=== PATIENT | male | born 2000 | race Caucasian/White ===

== ENCOUNTER 2022-07-15 08:00 | Outpatient (RCR) | payer BC, SELFPAY ==
--- NOTE | 2022-07-15 09:00 | BH.SGPN.GN ---
Behaviors/Verbalizations/Mental Status: []Eye contact is good. Motor activity is appropriate. Appearance is casual. Speech is Appropriate. Mood is anxious. Affect is congruent. Thoughts are linear and logical. No evidence of psychosis. Reviewed daily check in sheet and no reports of suicidal ideations or intent. Client Response/Progress/Benefit: []Pt responded well to session AEB listening attentively to others and sharing thoughts and feelings. Pt identified mental health positive as making it to IOP this morning and being up before his dad told him it was time to get up. Pt stated additional positive as being able to get through Thanksgiving dinner with limited isolation. Pt reported current stressor as his family because of feeling pressure from certain family members. Pt identified would like to focus on learning ways to manage his depression. Pt stated he also is struggling with some synagogue stuff, but will be meeting with an outpatient Sikhism counselor that might be able to help with that. Pt seemed to benefit from support from peers. First day in IOP. Pt to increase healthy coping skills, improve daily functioning, and prevent decompensation. Narrative Note: []
--- NOTE | 2022-07-15 10:12 | BH.SGPN.GN ---
Behaviors/Verbalizations/Mental Status: []Eye contact is good. Motor activity is appropriate. Appearance is casual. Speech is Appropriate. Mood is anxious and dysthymic. Affect is congruent. Thoughts are linear and logical. No evidence of psychosis. Client Response/Progress/Benefit: []Pt new to iop tx, did well to remain an engaged participant in group discussions. Attentive during psychoeducation on SMART goals (Specific, Measurable, Achievable, Realistic, and Time-bound) and engaged in group experiential activity. Participated in an interactive discussion with peers in which they worked together to define what a goal is and the benefits of having goals. Group identified benefits as; provides motivation, increased confidence, needed for growth, gives a sense of accomplishment, and help promote healthy change behaviors. Participated in interactive discussion in which group identified barriers to setting goals and following through with goals. Barriers identified included; lack of motivation, procrastination, criticism from self/others, unrealistic expectations, outside stressors, and not knowing where to start. Noted connecting with barrier of unrealistic expectations of self. Benefited from increased awareness of benefits and strategies for goal-setting. Will continue in IOP to prevent decompensation, improve mood stability, and improve ability to function at baseline. Narrative Note: []
--- NOTE | 2022-07-15 11:12 | BH.SGPN.GN ---
Behaviors/Verbalizations/Mental Status: []Eye contact is good. Alert and oriented. Motor activity is appropriate. Appearance is casual. grooming is appropriate. Speech is Appropriate. Mood is anxious and dysthymic. Affect is congruent. Thoughts are linear and logical. No evidence of psychosis or hallucinations. Client Response/Progress/Benefit: []Client was engaged during discussion and willing to complete the worksheet challenging them to develop a personal SMART goal. Client chose the goal of meditating 5-10 minutes each day for a week. Client stated this will benefit him by clearing his mind, improving focus, increasing mindfulness. Client identified barriers which included: forgetting and lack of motivation. Client receptive to identifying solutions for these barriers and willing to begin working on this goal. Benefited from this group by developing a short-term SMART goal related to mental health. Will continue IOP tx to improve mental health sx management, increased healthy coping, and prevent decompensation. Narrative Note: []
--- NOTE | 2022-07-17 09:00 | BH.SGPN.GN ---
Behaviors/Verbalizations/Mental Status: []Eye contact good, casually dressed, motor activity appropriate, speech normal rate and tone, mood anxious, congruent affect, thoughts linear and intact, no evidence of delusions or hallucinations. Reviewed pt's symptom tracker, denies suicidal ideation, plan, or intent as of this date 07/17/22. Client Response/Progress/Benefit: []Pt responded well to session, attentive and providing supportive feedback throughout. Pt reports feeling ?invigorated this morning. Identified current mental health wins as following through with 2 days in a row of meditating for at least 10 minutes, additionally notes spending time with his brother as a positive. Shared this was calming and encouraged him to continue with this goal. Shared current stressor is driving here as he struggles with anxiety and the weather was bad this morning. Did well to identify use of positive self-talk in order to support himself in getting here. Appearing to benefit from supportive feedback and reflecting on mental health wins. Pt to continue IOP tx to further improve healthy coping repertoire, improve mood stability, and prevent decompensation. Narrative Note: []
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
[2022-07-17 11:23] VITALS: BP 151/88; PULSE 73
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
--- NOTE | 2022-07-17 12:51 | BH.DR.ITP ---
Initial Treatment Plan Patient Information Visit Information: ADMISSION DATE: EXPECTED LOS: 4-6 weeks Problems/Symptoms Problem #1:: Mood instability Symptom:: Sadness, hopelessness, guilt, anhedonia, passive thoughts of , passive suicidal ideation Problem #2:: Anxiety Symptom:: Worry, rumination, intermittent intrusive thoughts
--- NOTE | 2022-07-17 15:42 | BH.MDN_ITS ---
Multi-Disciplinary Note - Note 30-min Individual Time Started:: 11:35 Date: 07/17/22 Purpose of session/treatment goals addressed:: To gather information on pt's current stressors, symptoms, triggers, and tx goals. Another goal was to build rapport and provide emotional support. Eye Contact:: Good Motor Activity:: Appropriate Appearance:: Neat Speech:: Appropriate Mood:: Anxious Affect:: Congruent Thoughts:: Linear, Logical, No evidence of hallucinations/delusions noted Staff Interventions:: psychoeducation on:, rapport building, strengths perspective, treatment planning, goal setting Client Response:: Pt responded well to session, open to meeting with therapist. Pt shared he is enjoying the group so far and likes connecting with peers. Pt has been in group therapy before and he felt the group atmosphere benefitting h im and taught him skills. Pt is connected with outpatient psychiatry and counseling. Pt sees a provider via telehealth for medication management and pt is going to see a [facility] based counselor soon. Pt shared he is spiritual at baseline, but he can tell he is depressed when I lose Jere and can tell when he is manic when I'm saved. Pt reported he wants to learn how to better cope with his depression and jim. Pt feels very negatively towards himself and reports unfairly comparing himself to his father. Pt is close with his siblings and mother. Per pt's chart, pt has intrusive thoughts, but pt did not disclose the nature of these thoughts to therapist. Pt did connect with general examples of intrusive thoughts such as thoughts of hurting others or thoughts about yuki. Pt could potentially benefit from learning more about intrusive thinking in future sessions. Risks/Concerns:: Denies active suicidal ideations, plan, or intent as of 07/17/22. Pt admits to having recent thoughts of and passive, fleeting SI, but none currently. Pt also reports having intrusive HI about once a week, but denies any plan or intent. Progress Toward Goals/Plan:: Pt's second day of IOP tx and reports enjoying the program so far. Pt presents with a depressed mood, intrusive thoughts, hopelessness, anhedonia, negative thoughts of self, and some OCD tendencies. Pt was diagnosed with bipolar disorder within in the last year and he reports history of jim with orthodox preoccupations. Pt reports at his baseline he is very spiritual, but it intensifies when manic. Pt will continue IOP tx to prevent decompensation and gain healthy coping skills. Time Stopped:: 11:55
--- NOTE | 2022-07-17 15:43 | BH.PSA_ITS ---
Source of Information - Presenting Problems/Circumstances Problems, Referral Source, Mental Status, Client: Pt is a 21 year-old male with a history of bipolar I disorder. Pt was referred to [facility] tx following a psychiatric admission at [facility] for suicidal ideations with a plan. Pt presents to [facility] in a depressed episode, but he had recent manic episodes which included racing thoughts, disorganized thoughts, excessive energy, delusions, and congregational preoccupation. Pt currently endorses a depressed mood, anhedonia, isolative behaviors, lack of motivation, and survival ambivalence. Pt also endorses intrusive HI but denies any intent to act on these thoughts and they are disturbing to pt. Pt admits to excessive drinking prior to his psychiatric admission. Pt's symptoms are impacting his overall functioning. Psychiatric Presentation - Psych Issues & Need for Admission Psychiatric Issues:: Bipolar 1 disorder, most recent episode depression, severe with psychotic features (F31.5; resolving); Anxiety disorder NOS; Cluster B traits; OCD tendencies Past Psychiatric History - MH Treatment Hx Treatment History: two psychiatric admissions per pt report. The first was in April, for jim and the second admission was as described above for depression. Pt was first manic he thinks in 2019 when he became very manic while at a [employer] camp and he felt that I am saved he remembers just feeling really good about himself and not sleeping at all. Pt has not had any suicide attempts ever. Pt did the partial hospitalization program at [facility] in high school in 2017. He has had counseling off-and-on since age 14. 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 He feels these preoccupations increased in recent years. He has a psychiatrist he sees weekly and he has been seeing him since April 2021. He had a counselor only for a few weeks and now he meets with a new counselor at [facility] which is a [employer]ist counselor. He first self harmed at age 15 and it involved bruising and burning himself as described in pt's psychiatric evaluation. First hospitalization:: 2020 Most recent hospitalization:: 2021 Medication Trials:: Yes ECT Therapy:: No Age of first mental health symptoms: See tx history Describe (age, circumstance, etc) any past hospitalizations: see tx history Current providers for mental health treatment (counselor, psychiatrist, case planner, etc.): Pt sees a therapist, Melvin, at [facility]. Pt also sees a psychiatrist at [facility]. Development & Family of Origin - Childhood Significant Childhood Events: Pt denied any significant childhood events. Pt shared he never felt like a good kid, though, so pt hid things from his parents. - Family Who currently lives in your home?: Pt lives with his parents and pt reports feeling like a mooch for not living on his own. This is a significant source of stress for pt. Describe family composition:: pt is the middle child and has a brother 14 months older than him and his sister 2 years younger than him. He is closer to his brother but gets along with both. Pt reports he does feel like he does not add up to his brother and father. Pt's parents are and loving. Pt has never been and he is not currently in a relationship. - Family History Family Hx of Psychiatric or AOD Problems: Paternal grandmother had schizophrenia and depression. He has a sister with bipolar disorder. No completed suicides in the family. Maternal grandmother had anxiety. Maternal grandfather was an alcoholic and he has a cousin who is a drug addict. Ethnicity - Culture Do you identify yourself with any particular cultural, ethnic background, or community?: No - Sexuality Sexual Orientation: Heterosexual Spirituality - Anglican Do you currently identify with any organized synagogue?: Judaism - Beliefs Is there a particular form of support from this community you can use for your recovery?: Yes - but this is also a significant stressor for pt. See psych eval. Mental Status - Memory Recent Memory: Fair Remote Memory: Fair - Concentration Concentration: Good - Eye Contact Eye Contact: Fair - Speech Speech: Articulate - Thought Process Thought Process: Obsessions, Ruminations Insight: Poor Judgment: Poor Delusions: Persecutory - He is preoccupied with congregational thoughts and thinks about his congregational ideas almost constantly. Pt feels like he is the devil when depressed and saved when manic. Behavior: Agitated - Orientation Orientation: Time, Person, Place, Situation - Appearance Appearance: Neat/clean - Affect Affect: Alert Suicide Assessment - Suicidal Ideation Have you ever felt like hurting yourself?: Yes Please explain:: history of suicidal ideations, but denies any currently. Pt also has a history of self-harm, but denies any currently. Were you using ETOH/drugs at the time?: No Suicidal Intentional Rating Scale (SIRS): Suicidal thoughts (past) - He has passive thoughts of at times but none for the past few days. He has had fleeting suicidal ideation recently but not in the past few days according to the patient. Physician Notification: If Active suicidal thoughts/Will not contract for safety is checked, contact physician and document in the Physician Notification section below. Violent Behavior/Abuse History - Homicidal Ideation Do you have any homicidal thoughts? If so, explain:: Yes Is there a known potential victim? If yes, who:: Yes Time warned, describe warning:: Pt does have intrusive thoughts around homicidal ideation where he has thoughts that come and go and he finds them ego dystonic or intrusive and he feels like he would never do them. The thoughts are of killing his father and sleeping with his mother. - Abuse Have you ever been abused?: No Please explain:: Pt denies any abuse during childhood or as an adult. - Life Events Are there any other significant life events?: Hardships - Safety Do you ever feel threatened in your home? 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 Substance Use - Substance Substance Use Type: Alcohol, Tobacco, Caffeine - Specific Drugs What specific drugs have you used?: Pt vapes nicotine. Non-smoker. No marijuana use ever. No other drug use except occasional alcohol use. After age 19 pt admits he would sporadically engage in some heavy drinking. He did this only occasionally until just prior to his recent psych admit in May 2022 once a week he was drinking a lots of vodka, several beers and a rum and coke. After discharge June 07 the first day he did drink 5 drinks but since that time he has only had 1 beer in the last week. He does not feel he has a problem with alcohol. No other drug use and no rehab ever. - IV Substance Use Do you have a history of IV use?: denies Leisure/Social Activities - Interests What do you enjoy or might be interested in learning about?: Pt enjoys drumming and his yuki is extremely important to him. Pt does not know what he wants to do for a career and this is very distressing to pt. Education & Occupational Histo - Education What is your level of education?: Some College - Pt has four years of college, but pt changed schools, so pt does not have a degree. Do you have any learning disabilities?: No - Occupation List any current or past employment:: Pt is currently not working. Pt has worked for [employer] in the past. Pt's unemployment is a significant stressor for pt as pt feels he is mooching off his parents. Service - Service Have you ever been in the ?: No Legal History - Records Have you had any past legal charges?: No Do you have any current legal charges?: No Have you ever been incarcerated? If yes, describe:: No - Court Orders Have you had any past court orders for psychiatric treatment?: No Do you have a present court order for psychiatric treatment?: No Problem Checklist - Current Problem Areas Problem List: Depressed mood/sad, Anxiety, Anger/aggression, Inattention, Impulsivity, Psychosis, Mood swings/hyperactivity, Substance use - history of alcohol misuse, denies abuse., Sleep problems, Additional psychosocial stressors - Pt is not working, has not finished school, and reports not knowing what he wants to do which causing pt significant distress. Discharge Planning Needs - Anticipated Follow-Up Mental Health Center (Name/Phone Number):: [facility]; 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 Diagnoses - Diagnoses Diagnosis #1:: Bipolar 1 dx, most recent episode depression, severe w/psychotic features Diagnosis #2:: Anxiety NOS Diagnosis #3:: Cluster B traits Diagnosis #4:: Rule out OCD Interpretive Summary - Interpretive Summary Interpretive Summary: Pt is a 21-year-old single male with a history of bipolar 1 disorder diagnosed 1 year ago who has been depressed since mid April 2022 when he stopped his psychiatric medications. This was followed by psychiatric admission to [facility] from May 28 to June 07, 2022 for depression, suicidal ideation with plan to cut with a razor. Pt has struggled with medication compliance in the past and then when he stops them sometimes it leads to jim and other times to depression. He currently lives with his parents and his 21-year-old sister. His family is supportive of him and he gets along well with them. However, pt has many negative feelings about himself for living at home. He last worked at [employer] for 3 years but he quit his job in early May due to mental health issues. 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 He is preoccupied with congregational thoughts and thinks about his congregational ideas almost constantly. He describes these thoughts as ego syntonic. He states that when he gets the thoughts he reports belief that they pretty much they are true. They are not unpleasant or intrusive in a negative way. He has been reading congregational readings for about 1 hour a day lately. This is more than he usually does. He states I am pretty sure I am going to hell. I am scared because once I , I am going to hell. At the time of his hospitalization 6 weeks ago or so the Pt states that he felt even more obsessed with the fact that he is not a good [employer]ist. At 1 point he actually felt like I am the devil. But he states that this did not last very long. Pt does have intrusive thoughts around homicidal ideation where he has thoughts that come and go and he finds them ego dystonic or intrusive and he feels like he would never do them. These homicidal thoughts are about killing another man and sleeping with his . These thoughts occur about his friends and occasionally about his father. He finds these thoughts unpleasant and does not feel he would ever act on them. He has no history of violence. He denies any rituals whatsoever. Including prior. He has a history of burning and bruising himself and the most recent time was during his hospital admission in May 2022 he punched a few things. He sometimes punches the dashboard of his car when he is frustrated or angry. He has a history of burning himself at [employer] in 2020 to relieve stress and tension. He describes his depression as still present and he is less sad but slightly better than he was when he was admitted to the hospital on May 28. He endorses hopelessness but no worthlessness. He is apathetic and has been isolating. He has low motivation. He is anhedonic and has some increase in appetite possibly due to medication. He is sleeping 8 to 10 hours a night and does not take naps. His energy level is low and his concentration he feels is okay. He admits to feeling guilty and ambiguous about living. He has passive thoughts of at times but none for the past few days. He has had fleeting suicidal ideation recently but not in the past few days according to the Pt. He denies any plan for suicide. He states he would not kill himself now because he feels he will go to [facility] if he does. Homicidal ideation is described above as it is an intrusive thought which is ego dystonic. He denies any hallucinations but states that in the past 1 manic he did have heard some voices at times when manic but not very often and not now. When he gets manic his symptoms involve racing thoughts, increased energy, sleeping sometimes 0 hours and not tired at all the next day, disorganized thinking and congregational preoccupation which increases in nature. Pt is a worrier by nature and rumina beatrice negatively. No panic attacks, eating disorder, trauma or PTSD or head trauma. He says a counselor has told him he had OCD in the past. Family history of alcohol use disorder, bipolar disorder, and schizophrenia. Treatment Plan Recommendations - Recommendations Guidelines: Special needs identified to be included in the development of an individualized treatment plan regarding past psychiatric history and treatment, developmental events, family relationships/events/culture, past and/or current educational, occupational, social, and residential experience, and legal status. Recommendations:: Pt will start IOP as the structure, support, education and group therapy will hopefully prevent worsening of pt's symptoms which might require rehospitalization. He felt safe during the interview and if it anytime he does not feel safe he will let us know or go to the emergency room. The risk, options, possible side effects and complications of the medications were discussed with pt and he understands and accepts these. No medication changes were made today as they were recently changed. Pt reports history of medication compliance.
--- NOTE | 2022-07-17 15:43 | BH.MTP ---
Master Treatment Plan - Patient Information Program Physician:: Dr. Avalos Primary Therapist:: Georgiana PARSONS - Psychiatric Diagnoses Psychiatric Diagnoses:: Bipolar 1 disorder, most recent episode depression, severe with psychotic features (F31.5; resolving); Anxiety disorder NOS; Cluster B traits; OCD tendencies Diagnosis Code(s):: F 31.5 - Estimated LOS Estimated LOS (in weeks):: 6 Problem/Goal #1 - Problem/Goal #1 Stated Goal:: Pt will increase mood stability, reduce intensity of bipolar sx, and improve daily functioning. Description of Barriers: Pt has a history of medication noncompliance which results in jim, pt endorses cheondoism preoccupation that could be from jim but could also be intrusive in nature. Pt has a family history of schizophrenia and alcoholism. Functional Impact: Pt is a 21 year-old male with a history of bipolar I disorder. Pt was referred to [facility] tx following a psychiatric admission at [facility] for suicidal ideations with a plan. Pt presents to [facility] in a depressed episode, but he had recent manic episodes which included racing thoughts, disorganized thoughts, excessive energy, delusions, and cheondoism preoccupation. Pt currently endorses a depressed mood, anhedonia, isolative behaviors, lack of motivation, and survival ambivalence. Pt also endorses intrusive HI but denies any intent to act on these thoughts and they are disturbing to pt. Pt admits to excessive drinking prior to his psychiatric admission. Pt's symptoms are impacting his overall functioning. Goal Relevant Strengths/Supports: Pt is close with his siblings and his mother, pt has outpatient psychiatry at [facility] and counseling through [facility], and pt is motivated. - Objectives Objective #1 Stated Objective: Pt will increase self-awareness of bipolar disorder by identifying 2-3 warning signs and triggers to both manic and depressive episodes Interventions: Through individual and group work, therapist will help pt to identify triggers and warning signs for manic and depressive episodes. Therapist will provide psychoeducation on bipolar disorder and attempt to decrease stigma associated with this dx. Discharge Criteria: Pt will be able to identify 2-3 triggers to jim and depressive episodes. Pt will also report increased awareness Bipolar dx and how it impacts pt's life. Target Date: 08/26/22 Review Date: 08/05/22 Status: open Objective #2 Stated Objective: Pt will learn and utilize 2-3 healthy coping strategies to better manage depressive symptoms and reduce DSM-5 symptoms for depression. Interventions: Through group and individual sessions, therapist will help pt identify triggers and warning signs of depression and emotional dysregulation including emotional, physical, and behavioral changes. Therapist will teach pt various coping skills to manage her symptoms. Therapist will use cognitive restructuring techniques and help pt gain awareness of negative thoughts that reinforce depressive cycles. Therapist will help pt incorporate mindfulness and emotional regulation skills when dealing with difficult situations. Discharge Criteria: Pt will have met this goal when can report learning and using at least 2 coping skills to manage depressive symptoms and her DSM-5 scores for depression have decreased. Target Date: 08/26/22 Review Date: 08/05/22 Status: open Problem/Goal #2 - Problem/Goal #2 Stated Goal:: Pt will reduce anxiety, avoidance, and intrusive thinking while increasing ability to function on daily basis Description of Barriers: Pt has a history of medication noncompliance which results in jim, pt endorses cheondoism preoccupation that could be from jim but could also be intrusive in nature. Pt has a family history of schizophrenia and alcoholism. Functional Impact: Pt is a 21 year-old male with a history of bipolar I disorder. Pt was referred to [facility] tx following a psychiatric admission at [facility] for suicidal ideations with a plan. Pt presents to [facility] in a depressed episode, but he had recent manic episodes which included racing thoughts, disorganized thoughts, excessive energy, delusions, and cheondoism preoccupation. Pt currently endorses a depressed mood, anhedonia, isolative behaviors, lack of motivation, and survival ambivalence. Pt also endorses intrusive HI but denies any intent to act on these thoughts and they are disturbing to pt. Pt admits to excessive drinking prior to his psychiatric admission. Pt's symptoms are impacting his overall functioning. Goal Relevant Strengths/Supports: Pt is close with his siblings and his mother, pt has outpatient psychiatry at [facility] and counseling through [facility], and pt is motivated. - Objectives Objective #1 Stated Objective: Pt will identify 2-3 anxiety triggers and 2 coping skills to use when feeling anxious to manage anxiety as shown by decreasing DSM-5 scores for anxiety. Interventions: Therapist will provide education on anxiety, avoidance behaviors, and maintenance cycles. Therapist will help pt explore personal symptoms and warning signs of anxiety. Therapist will teach pt coping skills to improve emotional regulation, mindfulness, and distress tolerance to help pt cope with anxiety in the moment. Discharge Criteria: Pt will have accomplished this goal when can identify at least 2 triggers and report using 2 coping skills to manage anxiety. Additionally, pt will have accomplished this goal when DSM-5 scores show a reduction for anxiety. Target Date: 08/26/22 Review Date: 08/05/22 Status: open Objective #2 Stated Objective: Pt will identify 2-3 intrusive/ruminating thoughts and learn 2-3 strategies to overcome, replace, or reduce the value of those thoughts. Interventions: Therapist will help pt increase awareness of cognitive distortions, false comfort, and myths about intrusive thoughts. Therapist will encourage pt to focus on stressors in his control and teach pt distress tolerance techniques. Therapist will utilize distractions, mindfulness, and CBT-based strategies to help pt learn how to more effectively manage and cope with his intrusive, health-related thoughts. Therapist will use a workbook to give pt homework and exercises to practice. Discharge Criteria: Pt will have met this goal when can report least 2 ways to cope with intrusive thoughts that exacerbate anxiety. Target Date: 08/26/22 Review Date: 08/05/22 Status: open
--- NOTE | 2022-08-15 11:15 | BH.SGPN.GN ---
Behaviors/Verbalizations/Mental Status: []Pt alert and oriented, casual appearance. Eye contact fair. Motor activity appropriate. Speech within normal limits. Affect congruent, mood euthymic. Thoughts linear, logical, no signs of hallucinations or delusions. Client Response/Progress/Benefit: []Pt engaged in session AEB pt listening attentively to peers, taking notes, and providing input. Attentive during psychoeducation on 4 zones of regulation. Pt able to identify feelings and behaviors pt exhibits for each zone.? Pt identified coping skills one can use to support self in each zone. Pt reported he connects with being in the yellow and blue zones most often. Pt identified coping skills willing to practice to include: setting a daily routing and journaling. Benefited from increased education on zones of regulation or stages of alertness for emotions and healthy coping skills to use for each zone. pt to continue IOP to increase consistent use of healthy skills, challenge distortions, and prevent decompensation.
== END 2022-07-17 23:59 ==
LOC: BHIOP 08:00
PROVIDERS: Referring Provider Psychiatry & Neurology Psychiatry; Visit Provider Psychiatry & Neurology Psychiatry
DX: F31.5 Bipolar disorder, current episode depressed, severe, with psychotic features (principal); F41.9 Anxiety disorder, unspecified
CPT/HCPCS: S9480; 90832; 90853

== ENCOUNTER 2022-07-18 08:23 | Outpatient (RCR) | payer BC, SELFPAY ==
[2022-07-18 00:44] VITALS: BP 151/88; PULSE 73
--- NOTE | 2022-07-19 09:00 | BH.SGPN.GN ---
Behaviors/Verbalizations/Mental Status: []Pt alert and oriented, neatly dressed and groomed. Eye contact good. Motor activity appropriate. Speech within normal limits. Affect congruent, mood euthymic. Thoughts linear, logical, no signs of hallucinations or delusions. Reviewed pt?s symptom tracker, no risk for suicidal ideation, plan, or intent as of 07/19/22 Client Response/Progress/Benefit: [] Pt responded well to session, attentive and receptive to feedback. Pt reports feeling engrossed today but also a little timid to fully share in group. Pt benefited from peers normalizing this and giving pt encouragement. Pt shared he met with his outpatient therapist yesterday and gained a new skill which has been helpful. Pt also reported practicing some assertive communication. Pt's first week in IOP tx and he appears to be assimilating well and connecting with peers. Pt will continue IOP tx to prevent decompensation, gain mood stability, and improve ability to manage negative thinking. Narrative Note: []
--- NOTE | 2022-07-19 10:15 | BH.SGPN.GN ---
Behaviors/Verbalizations/Mental Status: [] Eye contact is good. Motor activity is appropriate. Appearance is casual. Speech is Appropriate. Mood is anxious. Affect is congruent. Thoughts are linear and logical. No evidence of psychosis. Client Response/Progress/Benefit: [] Pt did not participated in group discussions, however was attentive during psychoeducation. Participated in small groups and during experiential activity. Attentive as peers defined self-care and discussed its benefits. Attentive as peers identified myths related to self-care which included; Self-care is expensive and lavish, self-care is just personal hygiene, self-care means I'm not being productive, self-care should be fun, self-care is too time consuming. Pt participated in small groups where they worked to bust these self-care myths. Pt did well to relate experiential activity to the topic of self-care and its benefit to mental health. Benefited from increased awareness of self-care, its benefits, and the consequences of not utilizing self-care strategies. Will continue in IOP to prevent decompensation/ re-admission, maintain safety, and stabilize mood. Narrative Note: []
--- NOTE | 2022-07-19 11:15 | BH.SGPN.GN ---
Behaviors/Verbalizations/Mental Status: []Pt alert and oriented, casually dressed and groomed. Eye contact good. Motor activity appropriate. Speech within normal limits. Affect congruent, mood anxious and depressed. Thoughts linear, logical, no signs of hallucinations or delusions. Client Response/Progress/Benefit: []Pt engaged participant AEB completing self-assessment worksheet, but pt was mostly quiet during discussion. Participated throughout group discussion on the various areas of self-care. Pt completed worksheet which identified current self-care practices and what self-care activities pt wants to start using. Pt selected professional self-care to begin practicing more consistently. Pt plans to do this by beginning to look for potential job opportunities. Appeared to benefit from completing the self-care evaluation and gaining insights into current self-care practices, as well as identifying areas in which she would like to improve upon. Will continue IOP tx to prevent decompensation, increase use of anxiety coping skills, and improve ability to manage stressors. Narrative Note: []
--- NOTE | 2022-07-22 09:01 | BH.SGPN.GN ---
Behaviors/Verbalizations/Mental Status: []Pt eye contact good, casually dressed, motor activity appropriate, speech normal rate and tone, mood anxious, congruent affect, thoughts linear and intact, no evidence of delusions or hallucinations. Per daily symptom tracker denies current SI, plan or intention. Client Response/Progress/Benefit: Pt responded well to session AEB listening attentively to others and sharing thoughts and feelings. Pt stated mental health positive as going to worship yesterday despite wanting to stay in bed. Pt reported he has been struggling to get out of bed prior to 1pm unless it's a day he's supposed to be at IOP. Pt stated additional mental health positive as decrease in intensity of depression. Pt reported he thinks going to support groups in the evening having been helping. Pt stated current stressor as not having a job. Pt seemed to benefit from support from others. Pt to continue IOP to improve daily functioning, increase mood stability, and prevent decompensation. Narrative Note: []
--- NOTE | 2022-07-22 10:03 | BH.SGPN.GN ---
Behaviors/Verbalizations/Mental Status: [ ] Eye contact is good. Motor activity is appropriate. Appearance is casual. Speech is Appropriate. Mood is euthymic. Affect is congruent. Thoughts are linear and logical. No evidence of psychosis. Client Response/Progress/Benefit: [] Client was an active participant during interactive group discussions when being prompted. Attentive during psychoeducation on the six types of boundaries (physical, emotional, intellectual, sexual, time, and material) AEB note-taking. Along with peers contributed to interactive discussion on defining what a boundary is in mental health. Client along with peers identified challenges to setting boundaries which included; fear of other's response, guilt, fear of losing relationships, and lack of confidence. Client along with peers identified the benefits to setting boundaries such as increased control, benefit to mental health, and increased confidence. Client shared that he feels that he struggles with respecting others emotional boundaries and feels when it comes to setting boundaries with time, he does a very good job at it. Client benefited from increased awareness and insight on the importance/benefit to setting health boundaries. Will continue in IOP to increase self care, stabilize anxiety, and improve functioning. Narrative Note: []
--- NOTE | 2022-07-22 11:10 | BH.SGPN.GN ---
Behaviors/Verbalizations/Mental Status: [] Client alert and oriented, casually dressed and appropriately groomed. Eye contact good. Motor activity normal. Speech within normal limits. Affect congruent, mood euthymic. Thoughts linear and intact. no signs of delusions or hallucinations. Client Response/Progress/Benefit: [] Client responded well to session AEB listening attentively to peers, providing input when prompted, as well as taking notes throughout. Group discussed the different boundary setting styles which included ridgid, porous, and flexible. Participated well in small group discussion identifying the pros and cons of each boundary setting style. As a group discussed various strategies to set boundaries. Client reports wanting to begin using skill of asking himself the positives and negatives before saying yes. Seemed to benefit from increased awareness of how different boundary styles can impact mental health. Client's will continue IOP tx to increase self worth, increase self-care and improve overall functioning. Narrative Note: []
--- NOTE | 2022-07-24 11:10 | BH.SGPN.GN ---
Behaviors/Verbalizations/Mental Status: [] Client alert and oriented, casually dressed and groomed. Eye contact fair. Motor activity appropriate. Speech within normal limits. Affect constricted, mood dysthymic and anxious. Thoughts linear, logical, no signs of hallucinations or delusions. Client Response/Progress/Benefit: Client was an active participant in group discussions and activity. Attentive during psychoeducation. Client along with peers were able to identify several negatives on the picture given to the group. Client and peers also identified positives in the picture and made the connect that finding positives is much more difficult. Interactive discussion on the definition of perspective, how perspective is formed, and why perspective is important in treatment. Client along with peers also identified that perspective can either motivate and encourage treatment or be a barrier to receiving help. Client shared he has a perspective that he doesn't have a lot to offer to conversations, which he stated prevents him from talking to new people. Will continue in IOP to improve functioning, increase healthy coping skills, and prevent decompensation.
--- NOTE | 2022-07-24 11:16 | BH.SGPN.GN ---
Behaviors/Verbalizations/Mental Status: []Client alert and oriented, casually dressed and groomed. Eye contact good. Motor activity appropriate. Speech within normal limits. Affect congruent, mood anxious. Thoughts linear, logical, no signs of hallucinations or delusions Client Response/Progress/Benefit: []Client was attentive and contributed in small and larger group discussion. Client completed strengths exploration worksheet and identified personal strengths of bravery, cooperation, flexibility, and social awareness. With some assistance, Client able to acknowledge how these strengths are helping him and can continue to help client in their mental health journey. Shared wanting to focus on using having an open-mind in tx to reinforce strength of bravery and empathy. Benefited from identifying personal strengths and strategies for enhancing use of identified strengths. Client to continue IOP tx to promote use of healthy coping skills, reduce anxiety, and prevent decompensation. Narrative Note: []
--- NOTE | 2022-07-26 09:00 | BH.SGPN.GN ---
Behaviors/Verbalizations/Mental Status: []Pt alert and oriented, neatly dressed and groomed. Eye contact good. Motor activity appropriate. Speech within normal limits. Affect congruent, mood anxious. Thoughts linear, logical, no signs of hallucinations or delusions. Reviewed pt?s symptom tracker, no risk for suicidal ideation, plan, or intent as of 07/26/22 Client Response/Progress/Benefit: [] pt responded well to session, attentive and engaged. Pt reports feeling hesitant this morning as pt has plans to hang out with a friend later, but he knows he has to set boundaries with this person. The group normalized the difficulty of boundary setting and gave pt strategies to help set the boundary. Pt's mental health wins today include applying for a job and using opposite action to try and expand his social supports. Pt appeared to benefit from group feedback. Pt will continue IOP tx to prevent decompensation, improve emotional regulation skills, and combat distortions. Narrative Note: []
--- NOTE | 2022-07-26 11:10 | BH.SGPN.GN ---
Behaviors/Verbalizations/Mental Status: [] Eye contact is good. Motor activity is appropriate. Appearance is casual. Speech is Appropriate. Mood is euthymic. Affect is congruent. Thoughts are linear and logical. No evidence of psychosis. Client Response/Progress/Benefit: [] Pt was an active participant in the group activity which involved working with peers to answer questions related to psychoeducation on cognitive distortions. Client engaged in activity in which group would practice identifying cognitive distortions, reframing cognitive distortions, and examples of distortions. Therapist used activity to reinforce psychoeducation and to help client retain the information through examples and practicing. Pt was engaged in the game and with peers on collaborating to determine the answers. Pt stated would like to work on challenging labeling thoughts he has. Benefited from rehearsing ways to challenge/reframe cognitive distortions and by gaining increased insight into examples/definitions of 10 most common cognitive distortions. Will continue in IOP to maintain gains and prevent decompensation.
--- NOTE | 2022-07-26 14:01 | BH.MDN_ITS ---
Multi-Disciplinary Note - Note 45-min Individual Time Started:: 10:20 Date: 07/26/22 Purpose of session/treatment goals addressed:: To work on goal #1 of pt's tx plan. Another goal was to provide education on intrusive thinking and give pt a chapter to read from the overcoming unwanted intrusive thoughts book. Eye Contact:: Good Motor Activity:: Appropriate Appearance:: Neat Speech:: Appropriate Mood:: Anxious Affect:: Congruent Thoughts:: Linear, Logical, No evidence of hallucinations/delusions noted Staff Interventions:: psychoeducation on: - intrusive thinking, rapport building, strengths perspective, goal setting, other - reviewed jim and d epressive symptoms pt identified. Client Response:: Pt responded well to session, open to meeting with therapist. 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 Pt shared he is nervous and excited about this. Pt stated he has struggled to identify what he wants to do, but he thinks this would be a good experience for him. Pt completed the worksheet from the bipolar workbook which helped pt identify symptoms of depression, jim, and normal self. Pt shared he really struggled with identifying what his baseline looked like and therapist normalized this for pt. Pt could identify some baseline traits which included being more naturally outgoing, having average focus, and feeling mostly confident. Pt shared when he is depressed he isolates, is highly negative about himself, and lacks motivation. Pt's symptoms for jim included more productivity, higher self-esteem, reduced sleep, and rapid speech. Pt stated he wishes he could be slightly manic most of the time, but he understands how this could lead to consequences. Discussed bipolar management factors in pt's control such as exercise, medications, sleep, caffeine/substances, and diet. Pt reports he is working on reducing caffeine and he has been staying away from alcohol. Pt given a chapter to read about the types of intrusive thoughts for homework. Risks/Concerns:: Pt denies any suicidal ideations, plan, or intent as of 07/26/22. Pt denies any delusions or jim symptoms currently. Progress Toward Goals/Plan:: Pt is working on his tx goals and adjusting well in IOP. Pt is consistent with attendance and he is engaged in groups. Pt follows through with his homework which will help pt apply skills outside of IOP. Pt reports accepting his bipolar diagnosis, but he feels torn about medications. Pt endorses a depressed mood with lack of energy, lack of motivation, and low self- esteem. Pt also connects with intrusive thoughts and was receptive to reading about them. Pt encouraged to reduce caffeine, exercise, and stay away from substances. Pt will continue IOP tx to prevent decompensation, increase ability to manage stressors, and improve daily functioning. Time Stopped:: 10:59
--- NOTE | 2022-07-29 09:00 | BH.SGPN.GN ---
Behaviors/Verbalizations/Mental Status: [] Eye contact is good. Motor activity is appropriate. Appearance is casual. Speech is Appropriate. Mood is euthymic. Affect is full. Thoughts are linear and logical. No evidence of psychosis. Reviewed daily check in sheet and no reports of suicidal ideations or intent Client Response/Progress/Benefit: [] Pt was an active participant in group discussion. Attentive. Mental health wins include attending a workout group over the weekend. States that he is attempting to isolate less and be more social. Benefits to attending this group and plans to attend again next week. Another win is that he has an interview today for a possible job. He briefly discussed the job and some hesitation as it was not the one that he originally applied. Reports that he has been managing his emotions well over the weekend however did notice that certain music led to depressed mood. Benefited from group support, encouragement, and feedback. Will continue in IOP to maintain safety, stabilize mood, and prevent decompensation/readmission. Narrative Note: []
--- NOTE | 2022-07-29 10:00 | BH.SGPN.GN ---
Behaviors/Verbalizations/Mental Status: [] Eye contact is good. Motor activity is appropriate. Appearance is casual. Speech is Appropriate. Mood is euthymic. Affect is constricted. Thoughts are linear and logical. No evidence of delusions or hallucinations. Client Response/Progress/Benefit: [] Pt was an active participant in group discussions and activity. Attentive during psychoeducation and provided insight into obstacles in the way of mental wellness. Pt shared his picture depicting his current mental health reality with the group. He described his current reality as feeling stagnant, not moving forward in life, and mood instability. Pt's desired reality is having support, feeling hopeful, and feeling more stable. Pt identified barriers that get in the way of desired reality include: not knowing what stability looks like, insecurities, fear of the unknown, and it being easier to stay stuck. Benefited from taking look at current mental health state and obstacles for progress. Will continue in IOP to improve stability, increase healthy coping skills, and prevent decompensation.
--- NOTE | 2022-07-29 11:08 | BH.SGPN.GN ---
Behaviors/Verbalizations/Mental Status: []Pt alert and oriented, neatly dressed and groomed. Eye contact good. Motor activity appropriate. Speech within normal limits. Affect congruent, mood anxious. Thoughts linear, logical, no signs of hallucinations or delusions. Client Response/Progress/Benefit: []Pt engaged during activity, encouraging peers and contributed as group brainstormed ideas on how to cope with internal barriers that keep pts stuck from moving towards goals. Able to identify barriers to desired reality. Identified barriers to current reality to include: fear of the unknown, insecurity, and wanting to stay stuck because it is easier. Pt wants to work on overcoming the barrier of fear of the unknown by putting himself in situations where he might fail, but he could succeed. Benefited from group by identifying obstacles and solutions to desired reality.? Pt will continue IOP tx to prevent decompensation, increase use of healthy coping skills, and improve daily functioning. ? Narrative Note: []
--- NOTE | 2022-08-01 13:33 | BH.MDN_ITS ---
Multi-Disciplinary Note - Note 45-min Individual Time Started:: 08:00 Date: 08/01/22 Purpose of session/treatment goals addressed:: To help pt challenge negative self-talk and work on goal #2 of pt's tx plan. Eye Contact:: Poor - looking down Motor Activity:: Appropriate, Other - tense- clinching fists Appearance:: Neat Speech:: Appropriate Mood:: Irritable Thoughts:: Racing, No evidence of hallucinations/delusions noted Staff Interventions:: thought challenging, motivational interviewing - to help pt combat unrealistic expectations of himself and his diagnosis., mindfulness skills, strengths perspective, completed risk assessment / safety planning, taught coping skills - practiced PMR in session Client Response:: Pt responded well to session, open to meeting with therapist. When asked how pt has been, pt shared really irritable. Pt presented angry and irritable, but pt gained awareness that the emotions under the surface were disappointment, sadness, fear, and frustration with self. Pt stated he feels like he is mooching off his parents and that he should just move out and figure all this out by myself so I can live a life of purpose. Pt shared he sees his peers living independently and knowing what they want to do with their lives and this further reinforces pt's negative self-talk. Pt receptive to practicing PMR as pt was visibly tense and he responded well to this. Pt then able to challenge some of his thinking patterns and unrealistic expectations of self. Pt shared he comes himself to his father and looks at what his father has done at pt's age. Pt able to see how this is an unfair comparison as they had very different circumstances. Pt felt it was best to go home instead of sit through group today and pt created some plans for today. Pt thinks drumming, talking with a friend, and taking a walk may be helpful to combat his thinking and reduce irritability. Risks/Concerns:: Pt presented as highly agitated this morning, but he did not report any suicidal ideations or homicidal ideations. Pt was future oriented planned to call a friend after leaving [facility] today. Progress Toward Goals/Plan:: Pt is responding well to treatment, but today pt presents highly irritable and frustrated with himself. Pt endorses irritability, worthlessness, feelings of being a burden, and racing thoughts. Pt practiced calming skills in session, but he felt it was better to go home today as his agitation and irritability are still high. Pt plans to play the drums today and spend time with a friend. Pt reported he got sleep last night and did not appear to be manic. Pt's core beliefs of self are very negative and pt has limited insight to his unrealistic expectations of self. Pt will continue IOP tx to prevent decompensation, improve daily functioning, and increase self-compassion. Time Stopped:: 08:45
--- NOTE | 2022-08-02 09:10 | BH.SGPN.GN ---
Behaviors/Verbalizations/Mental Status: [] Eye contact is good. Motor activity is appropriate. Appearance is casual. Speech is Appropriate. Mood is depressed/irritable. Affect is congruent. Thoughts are linear and logical. No evidence of psychosis. Reviewed daily check in sheet and no reports of suicidal ideations or intent. Client Response/Progress/Benefit: [] Pt participated at times during the group discussions. Attentive. Provided minimal insight during video on empathy vs sympathy. Daily symptom tracker notes 3/5 for depression and 2/5 for irritability. Mental health win is that he is meeting up with a friend of 9 years this evening and plans to talk with him about everything. Shared with the group that he has been very irritable for the the past few days. States he was anger and didn't handle it well. Comparing himself to others and feels that he should have accomplished more. 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 Group was supportive and empathetic. Peers provided feedback which was helpful. Pt is also struggling with his taoist stating I'm not where I want to be with my relationship with Cristóbal as well. Will continue in IOP to stablize mood, prevent decompensation, and to increase healthy coping. Narrative Note: []
--- NOTE | 2022-08-05 09:00 | BH.SGPN.GN ---
Behaviors/Verbalizations/Mental Status: []Pt alert and oriented, neatly dressed and groomed. Eye contact good. Motor activity appropriate. Speech within normal limits. Affect congruent, mood calm. Thoughts linear, logical, no signs of hallucinations or delusions. Reviewed pt?s symptom tracker, no risk for suicidal ideation, plan, or intent as of 08/05/22 Client Response/Progress/Benefit: []Pt responded well to session, attentive and engaged. Pt reports feeling rested this morning and shared that his mood is better than last week. Pt stated he spent time with multiple friend over the weekend and he saw a chorus preform. Pt reported that he opened up to one of his friends about his mental health and this was helpful. Pt shared he is less irritable today because he has also decided to not try and jump into work while in IOP. Pt's stressor today is knowing that he has a lot of family parties coming up this week for [employer]. Pt appeared to benefit from reflecting on his application of coping skills. Pt will continue IOP tx to promote mood stability, reduce negative thought patterns, and improve daily functioning. Narrative Note: []
--- NOTE | 2022-08-05 10:15 | BH.SGPN.GN ---
Behaviors/Verbalizations/Mental Status: []Client alert and oriented, casually dressed and groomed. Eye contact good. Motor activity appropriate. Speech within normal limits. Affect congruent, mood anxious and dysthymic. Thoughts linear, logical, no signs of hallucinations or delusions. Client Response/Progress/Benefit: []Client receptive to session AEB contributing at times to discussion, as well listening attentively to others, and taking notes. Worked with group to brainstorm the positive and negative aspects of stress on physical and mental health. Group did well to identify the benefits of stress as well as the impact of distress on performance, relationships, and mental health. Client identified their personal top stressors as: accomplishing the personal goals he has for himself, personal relationships, and continuing his job search. Client reports when the stress overflows client reacts with increased sleep, increased appetite, and taking on more responsibilities to distract himself to the point of burnout. Client seemed to benefit from increased awareness of current stressors and impact stress has on mental health. Recommended to continue IOP tx to further stabilize moods, continue to improve self-talk and reduce unrealistic expectations of himself, and prevent decompensation. Narrative Note: []
--- NOTE | 2022-08-05 11:15 | BH.SGPN.GN ---
Behaviors/Verbalizations/Mental Status: []Pt alert and oriented, casually dressed and groomed. Eye contact good. Motor activity appropriate. Speech within normal limits. Affect constricted, mood dysthymic. Thoughts linear, logical, no signs of hallucinations or delusions. Client Response/Progress/Benefit: []Pt participated at times during group discussions. Attentive during psychoeducation on the 4 A's of Coping with Stress (Avoid, Alter, Adapt, Accept). Participated in experiential activity in which group members had to utilize stress management skills in the moment. Pt did well to problem-solve and express ideas to peers. Pt engaged in review of the 4 A?s to managing stress. Pt reported he would like to work on the stressor of relationships by accepting it's okay to be vulnerable with others in order to have deep and meaningful relationships. Benefited from processing in the moment stress management strategies and identifying new ways to cope with stress. Will continue in IOP tx to prevent decompensation, challenge distorted/negative thoughts, and improve confidence.
--- NOTE | 2022-08-07 09:00 | BH.SGPN.GN ---
Behaviors/Verbalizations/Mental Status: [] Eye contact is good. Motor activity is appropriate. Appearance is casual. Speech is Appropriate. Mood is euthymic. Affect is constricted. Thoughts are linear and logical. No evidence of psychosis. Reviewed daily check in sheet and no reports of suicidal ideations or intent. Client Response/Progress/Benefit: []Pt responded well to session AEB listening attentively to others and sharing thoughts and feelings. Pt reported mental health win as getting through holiday alliance party yesterday. Pt shared holiday parties tend to increase his anxiety and he finds it challenging to be at the parties. Pt reported staying close to his brother for the holiday alliance party helped him manage his anxiety and able to get through the event. Pt stated additional mental health positive as feeling less irritable recently. Pt reported his doctor believes he was feeling more irritable due to it being 7 days past his due date to get his abilify shot. Pt stated I have no stressors. Pt seems to continue to minimize his problems and share superficially in group setting. This could be hindrance to treatment progress. Pt to continue IOP to increase consistent use of skills, challenge negative thinking, and prevent decompensation. Narrative Note: []
--- NOTE | 2022-08-07 10:05 | BH.SGPN.GN ---
Behaviors/Verbalizations/Mental Status: []Eye contact is good. Motor activity is appropriate. Appearance is casual. Speech is Appropriate. Mood is depressed and anxious. Affect is congruent. Thoughts are linear and logical. No evidence of psychosis. Client Response/Progress/Benefit: []Pt participated at times during the group discussion. Attentive during psychoeducation and actively engaged during experiential activity. Participated during interactive discussion on aspects of fixed mindset. Group identified several aspects of fixed mindset which included; inflexible, belief that one cannot grow, absolute thinking, and all of one's skills, traits, and behaviors are set in stone and can't change. Pt did well in experiential activity in which they were given a seemingly impossible task and were asked to identify fixed thoughts that arose. Group then identified personal examples of fixed thinking in which pt shared personal fixed thoughts as: I?m gross?, ?I?m broken?, and ?I?m lazy?. Benefited from increased understanding of personal fixed mindsets and how they can impact mental health. Will continue in IOP to prevent decompensation, maintain safety, and improve ability to practice self-compassionate thinking. Narrative Note: []
--- NOTE | 2022-08-07 11:05 | BH.SGPN.GN ---
Behaviors/Verbalizations/Mental Status: []Pt alert and oriented, neatly dressed and groomed. Eye contact good. Motor activity appropriate. Speech within normal limits. Affect constricted, mood dysthymic. Thoughts linear, logical, no signs of hallucinations or delusions. Client Response/Progress/Benefit: []Pt engaged during activity and discussion AEB providing some input, connecting with peers, as well as taking notes throughout. Pt did well to engage as group worked on identifying characteristics and benefits of adopting a growth mindset. Worked with fellow participants in reframing the example fixed thoughts into growth mindset thoughts. Reframed personal fixed thought of ?I?m pathetic? with growth mindset thought of ?I?m not pathetic all the time.? Benefitted from discussing benefits of growth mindset and brainstorming strategies for prompting growth-mindset. Pt continues to struggle with combatting distortions and accepting tangible help from supports. Will continue IOP tx to prevent decompensation, improve mood stability, and combat distortions. ? Narrative Note: []
--- NOTE | 2022-08-07 11:53 | PCM.BH.PN_ITS ---
Progress Note Progress Note: History of Present Illness/Interim History: The patient is a 21-year-old single male with a history of bipolar 1 disorder who is seen in follow-up at the [facility] behavioral health IOP program. I last saw the patient 3 weeks ago and according to staff he has been consistently attending and engaged in treatment. The patient states that he was and has been improving overall in the last few weeks. He had some depression last week because he was comparing himself to friends who have jobs or are in college. He states that he has been compliant with taking his medication. His mood is better this week and he feels less depressed. His thinking is clearer also. He states that he is no t thinking he is the devil anymore and that his samaritan thoughts are much less often and much less intense than before. He has occasional intrusive thoughts about killing another man and sleeping with his but these are much easier to dismiss and he understands that they are compulsive thoughts related to OCD tendencies. He has been ruminating negatively somewhat when he compares himself to his peers. He denies any passive thoughts of . He denies suicidal ideation, plan for suicide, homicidal ideation, hallucinations. His delusions are much less and much improved than he was several weeks ago. He is not preoccupied with samaritan thoughts now. Current Psychiatric Medications: [] Patient had his third Abilify shot on August 06, 2022; 400 mg IM which will occur monthly. He is no longer on p.o. Abilify. He is also on lithium carbonate 300 mg p.o. twice daily (x1 year); trazodone 100 mg nightly as needed for sleep and Vistaril 50 mg up to 3 times daily as needed. Mental Status Examination: [] The patient is a 21-year-old male who appears normal for stated age and is casually dressed and groomed with good hygiene. He is cooperative and pleasant during the interview. Speech is normal rate and rhythm and fluent with no pressure. Eye contact is good and he is ambulatory with a normal gait. He has no psychomotor agitation or retardation. Mood is mildly depressed. Affect is full and normal. Thought process is goal- directed and organized. Thought content: There is no evidence of passive thoughts of or suicidal ideation. Taoist preoccupation and perseveration is much decreased. Taoist delusions have almost completely resolved. There is no evidence of homicidal ideation, hallucinations or other delusions. Reality testing is intact. Judgment is intact. Insight is improving. Impulsivity is moderate to high. Diagnoses: [] 1. Bipolar 1 disorder, most recent episode depression, severe with psychotic features in partial remission (F31.75) 2. Anxiety disorder, NOS 3. Cluster B traits 4. Primary support, work and school issues 5. OCD tendencies Plan: [] The patient will continue the IOP program at [facility] as the structure, support, education and group therapy will hopefully prevent worsening of the patient's symptoms which might require rehospitalization. He felt safe during the interview and if it anytime he does not feel safe he will let us know or go to the emergency room. The risks, options, possible complications and side effects of the medications were again discussed with the patient and he understands and accepts these. No medication changes were made today. I will see the patient in follow-up while in the IOP program and he will continue to follow-up with his outpatient providers.
--- NOTE | 2022-08-07 14:05 | BH.MDN_ITS ---
Multi-Disciplinary Note - Note 30-min Individual Time Started:: 12:00 Date: 08/07/22 Purpose of session/treatment goals addressed:: To address current stressors, symptoms, and distorted thought patterns. Eye Contact:: Avoidant - stares Motor Activity:: Appropriate Appearance:: Casual Mood:: Irritable, Depressed Affect:: Flat Thoughts:: Other - ruminating negatively Staff Interventions:: thought challenging, motivational interviewing, CBT techniques, strengths perspective, completed risk assessment / safety planning - therapist asked pt if he can keep himself safe today., other - therapist attempted to work on a decisional balance worksheet with pt Client Response:: Pt entered session alert and oriented. Pt shared he was more irritable last week and pt shared it was due to missing a week of his Abilify. Last week pt left after his individual session due to feeling too irritable and having negative thinking. Pt's mood today was similar, but even more negative towards self. Pt shared belief that the only way to get better and provide for himself is to become a hobo. Pt stated to him this seems courageous and will help me overcome my fear of failure. Pt continues to believe that he is mooching off of his parents and pt reports belief that he is manipulating his parents. Pt appears to have poor insight that his mooching behaviors are symptoms of depression. Pt initially receptive to thought challenging, but then shared that therapy can be frustrating because pt does not believe nice things people say about him. Pt stood up during session and shared he felt that he should leave for the day. Pt stated he was not a danger to himself and he plans to attend [facility] tomorrow. Risks/Concerns:: Pt denies any active suicidal ideations, plan, or intent as of 08/07/22. Pt made comments about survival ambivalence, but denied any suicidal thoughts. Pt denied any HI. Pt's behavior was concerning as pt left in the middle of session and appeared distressed. Pt reported that therapy does frustrate him because he does not believe he can change his thinking. Progress Toward Goals/Plan:: Pt's presentation today was more depressed and irritable during individual session, but pt was positive during group session. Pt's DSM-5 scores decreased since admission as well, so it is hard to determine if this is true progress or if his mood was triggered in group. Pt was more negative with himself last week as well and he continues to struggle with challenging distortions. Pt was off his Abilify for a week, but got his Abilify shot yesterday. Pt will continue IOP tx to prevent decompensation, combat distortions, and gain self-compassion. Time Stopped:: 12:30
--- NOTE | 2022-08-07 14:14 | BH.MTP_ITS ---
Treatment Plan Review Date of Admission:: 07/15/22 Date of Treatment Plan Review:: 08/07/22 Admitting Diagnoses:: Bipolar 1 disorder, most recent episode depression, severe with psychotic features (F31.5; resolving); Anxiety disorder NOS; Cluster B traits; OCD tendencies Current Diagnoses:: Bipolar 1 disorder, most recent episode depression, severe with psychotic features (F31.5; resolving); Anxiety disorder NOS; Cluster B traits; OCD tendencies Patient's Response to Treatment:: Pt is responded somewhat well to treatment. Pt's attendance is consistent, but he has struggled with engagement, especially in individual sessions. Pt connects with peers and takes notes during group. Individually pt shuts down when therapist attempts to help pt utilize cognitive restructuring and self-compassion. Pt reports medication compliance and per his DSM-5, his overall symptoms have reduced by 50% since intake. However, his symptom reduction may not be a true indication of his mood-see below. Status of Current Problems and Symptoms: Pt is reporting on his DSM-5 an improved mood and reduced symptoms of bipolar disorder and anxiety. Pt reported to Dr. Avalos that his mood has improved and he is only slightly depressed with no yarsanism preoccupations. However this is incongruent to how pt presents during individual and group sessions. Pt has been reporting increased negative thought patterns and ruminations about himself and his lack of a job. Pt also has been shutting down during individual sessions and left early during two of them (08/01/22 and 08/07/22). Problem #1 Problem Name:: Mood instability and depression Status of Goals:: Objective 1-complete. Pt has learned more about his bipolar disorder and can identify early warning signs for both jim and depression. Pt reports difficulty accepting his diagnosis still due to struggling to find out who he is outside of the symptoms. Objective 2- in progress. Per pt's DSM-5 scores, his symptoms have decreased by 67% since admission. However how pt presents during sessions is incongruent to this reduction. Team Recommendations:: Treatment tx encourages pt to continue working on this goal was pt is reporting improved symptoms, but he continues to express very negative views of self and endorses severe ruminations. Problem #2 Problem Name:: Anxiety, avoidance, and intrusive thinking Status of Goals:: Objective 1- in progress. Pt's DSM-5 scores have decreased by 50% since admission. Pt has learned various coping skills to manage his anxiety, but pt continues to struggle with avoidance. Objective 2- complete per pt's report. Pt shared he is no longer struggling with the intrusive thoughts that were distressing him at intake. Pt can identify and utilize coping skills to use when he has persistent and intrusive thinking. Team Recommendations:: Treatment team encourages pt to continue working on this tx goal was pt continues to struggle with avoiding things that make him anxious. Pt also encouraged to work on adjusting his expectations for himself as this reinforces anxiety.
--- NOTE | 2022-08-07 14:19 | BH.COMM ---
Communication Note - Communication with Client Communication Note: Therapist called pt's mother who is pt's emergency contact. Therapist informed mother that pt left during the middle of session abruptly. Pt denied any SI or risk to therapist and psychiatrist, but therapist expressed concern due to the uncharacteristic behavior. Mother reports she will check-in with pt today.
--- NOTE | 2022-08-08 09:00 | BH.SGPN.GN ---
Behaviors/Verbalizations/Mental Status: []Pt alert and oriented, neatly dressed and groomed. Eye contact fair. Motor activity appropriate. Speech within normal limits. Affect constricted, mood frustrated. Thoughts linear, logical, no signs of hallucinations or delusions. Reviewed pt?s symptom tracker, no risk for suicidal ideation, plan, or intent as of 08/08/22 Client Response/Progress/Benefit: [] Pt responded well to session, quiet, but participating when prompted. Pt reports feeling frustrated this morning because I have an expectation to get a job when I'm done here. Pt shared this expectation makes him want to run away and be a hobo though pt acknowledges that is unsafe. Therapist and peers attempted to help pt thought challenge, but pt has shared before that he does not believe his thoughts are distorted. Pt's mental health win today is that he had a relaxing evening last night. Pt appeared to benefit from attending IOP tx today instead of isolating. Pt will continue IOP tx to prevent decompensation, reduce negative self-talk, and improve daily functioning. Narrative Note: []
--- NOTE | 2022-08-08 10:10 | BH.SGPN.GN ---
Behaviors/Verbalizations/Mental Status: [] Eye contact is good. Motor activity is appropriate. Appearance is casual. Speech is Appropriate. Mood is anxious. Affect is congruent. Thoughts are linear and logical. No evidence of psychosis. Client Response/Progress/Benefit: [] Pt participated at times during the group discussions. Attentive during psychoeducation. Participated along with peers on working to define locus of control and provide examples of internal and external locus of control. Interactive discussion between group members, pt, and therapist on characteristics of internal locus of control which included; takes responsibility for actions, less influenced by others and increased confidence. Some characteristic identified by patient and peers for external locus of control included; others have more influence and control, decreased motivation to make changes if one believes that mood/thoughts/self-esteem are based on others. Active and engaged during experiential activity and was able to see correlations between activity and emotions/perspectives associated with internal vs external locus of control. Benefited from increased insight and awareness of internal vs external locus of control and how this could impact mental health. Will continue in IOP to prevent decompensation/ re-admission to psych unit, stabilize mood, and improve functioning. Narrative Note: []
--- NOTE | 2022-08-08 11:05 | BH.SGPN.GN ---
Behaviors/Verbalizations/Mental Status: []Client alert and oriented, casually dressed and groomed. Eye contact fair to good. Motor activity appropriate. Speech within normal limits, limited input provided. Affect congruent, mood anxious and depressed. Thoughts linear, logical, no signs of hallucinations or delusions. Client Response/Progress/Benefit: []Client responded well to session, actively engaged during psychoeducation on circles of control including areas in which we have control, some influence, or concern but no control over in daily life. Client completed a worksheet in which they identified what areas their own current stressors may fall into. Client identified having most control over: his perspective, behaviors, when he goes to bed, and whether he begins looking for a job; struggled with absolute thinking which impeded pt?s ability to identify areas he has some control over. Noted having no control over: the news, who he meets, what others do, and . Group then worked together on identifying steps to begin using an internal locus of control when addressing current stressors. Client identified wanting to focus on putting more effort into finding a job. Noted plans to do so by finding places he would like to start applying. Client continues to struggle with high expectations of self which appear to impede ability to make progress and limit self-compassion. Client will continue IOP tx to improve mood stability, begin establishing healthier self-talk patterns, and prevent decompensation. Narrative Note: []
--- NOTE | 2022-08-14 09:00 | BH.SGPN.GN ---
Behaviors/Verbalizations/Mental Status: []Pt eye contact good, casually dressed, motor activity appropriate, speech normal rate and tone, mood euthymic, congruent affect, thoughts linear and intact, no evidence of delusions or hallucinations. Pt's symptom tracker indicates no current suicidal ideation, plan, or intention. Client Response/Progress/Benefit: []Pt responded well to session AEB listening attentively to others and sharing thoughts and feelings. Pt reported mental health positive as meeting up with friends yesterday to play [employer] and [employer]. Pt stated he got to spend time with friends that he hasn't seen in awhile. Pt reported additional positive as choosing to take action while at a holiday constitution party over the weekend by asking a group of people to play board games together, instead of choosing to sit around and feeling anxious. Pt Pt to continue IOP to maintain gains, continue use of healthy coping, and prevent decompensation. Narrative Note: []
--- NOTE | 2022-08-14 10:08 | BH.SGPN.GN ---
Behaviors/Verbalizations/Mental Status: []Pt alert and oriented, neatly dressed and groomed. Eye contact fair. Motor activity appropriate. Speech within normal limits. Affect constricted, mood depressed. Thoughts linear, logical, no signs of hallucinations or delusions. Client Response/Progress/Benefit: []Pt participated at times during the group discussions. Participated during interactive discussion on defining conflict (internal/external) and possible benefits to conflict. Attentive during psychoeducation on conflict styles and engaged during small group activity in which peers identified the benefits and consequences to each conflict style. Pt identified that their primary conflict styles as avoiding. Pt shared ?when there?s any kind of conflict I shut down? due to fear of change and fear of rejection. Pt reports this impacts his relationships and keeps him from making progress with his mental health. Benefited from increased awareness of the impact of conflict styles in mental health. Will continue in IOP to reduce avoidance, combat distorted thought patterns, and improve daily functioning. ? Narrative Note: []
--- NOTE | 2022-08-14 11:08 | BH.SGPN.GN ---
Behaviors/Verbalizations/Mental Status: []Pt alert and oriented, neatly dressed and groomed. Eye contact good. Motor activity appropriate. Speech within normal limits. Affect constricted, mood depressed. Thoughts linear, logical, no signs of hallucinations or delusions. Client Response/Progress/Benefit: []Pt engaged in session AEB contributing to discussion and engaging in activity. Pt did well to review current conflict style and its impact on mental health. Attentive and taking notes during discussion on strategies for more effectively managing conflict in personal life.? Pt participated in activity and did well to talk through choices with peers. Pt given handout on fair fighting rules and identified that they want to work on no stonewalling as it ?leaves the matter unresolved.? Appeared to benefit from gaining strategies to help pt better manage conflict. Will continue IOP tx to prevent decompensation, increase insight, and improve use of healthy coping skills. ?? Narrative Note: []
--- NOTE | 2022-08-15 09:05 | BH.SGPN.GN ---
Behaviors/Verbalizations/Mental Status: [] Eye contact is good. Motor activity is appropriate. Appearance is casual. Speech is Appropriate. Mood is anxious. Affect is congruent. Thoughts are linear and logical. No evidence of psychosis. Reviewed daily check in sheet and no reports of suicidal ideations or intent. Client Response/Progress/Benefit: [] Pt participated at times during the group discussion. Participated in group mindfulness exercise (5 senses). Daily symptom tracker notes 3/5 for depression and /5 for anger. Emotion for today is lethargic. Mental health wins included spending time and cooking with support. Shared that pt and his brothers cooked an appetizer for upcoming holiday event. Discussed how this is beneficial to his mental health. When asked about stressors pt stated none. When asked how he has been managing his stress, anxiety, depression, and other emotions he stated I'm working on trying to talk things out however did not elaborate. Benefited from group support, encouragment, and feedback. Will continue in IOP to prevent decompensation/re-admission, stabilize mood, and increase healthy coping skills. Narrative Note: []
--- NOTE | 2022-08-15 10:05 | BH.SGPN.GN ---
Behaviors/Verbalizations/Mental Status: []Eye contact is good. Alert and oriented. Motor activity is appropriate. Appearance is casual. grooming is appropriate. Speech is Appropriate. Mood is anxious and euthymic. Affect is congruent. Thoughts are linear and logical. No evidence of psychosis or hallucinations. Client Response/Progress/Benefit: []Client active participate AEB listening attentively to others and providing contributions throughout. The group identified impacts of not managing emotions on communication as lashing out, stone-walling, not retaining information, and monopolizing the conversation. Client stated he has struggled with either shutting down, leaving a conversation, or monopolizing it when angry or upset, noting this has had negative impacts on relationships and ability to resolve the issue at hand in the past. Client engaged in activity, able to manage emotions in the moment. Client benefited from session to gain understanding on the importance of managing emotions to improve daily functioning. Client will continue IOP to increase willingness to open up in tx, challenge negative thoughts, and prevent decompensation. Narrative Note: []
--- NOTE | 2022-08-16 09:05 | BH.SGPN.GN ---
Behaviors/Verbalizations/Mental Status: []Pt alert and oriented, neatly dressed and groomed. Eye contact poor. Motor activity appropriate. Speech within normal limits. Affect flat, mood depressed. Thoughts linear, logical, no signs of hallucinations or delusions. Reviewed pt?s symptom tracker and pt denies any active SI, plan, or intent as of 08/16/22. ? Client Response/Progress/Benefit: []Pt responded somewhat well to session, pt shared when prompted, but appeared distracted and withdrawn. Pt reports feeling lethargic this morning and pt has been struggling more lately with his depressed mood. Pt shared he recently had a conflict with his parents about pt's future and plans for a job. Pt has insight that his typical response to conflict is shutting down and isolating. Pt shared his mental health wins today are that he spent some time with his friends recently, but pt does not have many wins. Pt's progress is mild due to pt's self-report of lack of motivation and inability to challenge his negative core beliefs. Pt will continue IOP tx to promote use of healthy coping skills and prevent decompensation. Narrative Note: []
--- NOTE | 2022-08-16 10:10 | BH.SGPN.GN ---
Behaviors/Verbalizations/Mental Status: Client alert and oriented, casually dressed and groomed. Eye contact fair. Motor activity appropriate. Speech within normal limits. Affect constricted, mood dysthymic. Thoughts linear, logical, no signs of hallucinations or delusions. Client Response/Progress/Benefit: [Client responded well to session, attentive and participating in discussion. Participated in discussion of things that can keep people feeling trapped or stuck in life including: isolation, past experiences, negative perspective, and low self-esteem. Group discussed the connection between thoughts, emotions, and behaviors as well as how negative thinking can keep a person stuck. Client attentive during psychoeducation on maintenance cycles. Client able to identify negative thoughts that have reinforced depression and kept client feeling trapped. Client shared a negative thought maintaining depression is life is meaningless. Stated this thought makes him lazy, lies to others, and uses manipulation to get what needs. Appeared to benefit from gaining awareness of how negative thoughts reinforce mental health symptoms and keep people stuck. Client to continue IOP to challenge distorted perspective, increase use of skills outside treatment, and prevent decompensation.
--- NOTE | 2022-08-16 12:00 | BH.DS_ITS ---
Discharge Summary - Demographics Date of Admission:: 07/15/22 Discharge Date: 08/16/22 Presenting Problems at Admission:: Pt is a 21 year-old male with a history of bipolar I disorder. Pt was referred to [facility] following a psychiatric admission at [facility] for suicidal ideations with a plan. Pt presents to [facility] in a depressed episode, but he had recent manic episodes which included racing thoughts, disorganized thoughts, excessive energy, delusions, and oriental orthodox preoccupation. Pt currently endorses a depressed mood, anhedonia, isolative behaviors, lack of motivation, and survival ambivalence. Pt also endorses intrusive HI but denies any intent to act on these thoughts and they are disturbing to pt. Pt admits to excessive drinking prior to his psychiatric admission. Pt's symptoms are impacting his overall functioning. Discharge Diagnoses:: Bipolar 1 disorder, most recent episode depression, severe with psychotic features (F31.5; resolving); Anxiety disorder NOS; Cluster B traits; OCD tendencies Reason for Discharge:: Pt voluntarily discharged from [facility] tx today. Pt reported I don't want to do this program anymore. I don't want to change. Pt will continue with outpatient counseling at [facility] and psychiatry at [facility]. - Treatment Progress During Treatment & Response: Pt responded somewhat well to treatment. Pt's attendance was consistent, but he struggled with engagement, especially in individual sessions. Pt connected with peers and took notes during group. Individually pt shut down when therapist attempted to help pt utilize cognitive restructuring and self-compassion. Pt also was reporting improvement in mood and functioning when he met with Dr. Avalos, but during individual sessions pt's report was incongruent. Pt was often reporting negative ruminations, feeling hopeless and like things are pointless, and lack of motivation. Issues Still to be Addressed:: Negative core beliefs, management of bipolar symptoms, rigid oriental orthodox beliefs that cause pt distress, lack of motivation, and life skills. Discharge Recommendations/Instructions:: Pt will continue with outpatient counseling at [facility] with Melvin Dennis. Pt has an appointment on 08/22/22. Pt will continue getting medication management through [facility]. Discharge Handout: Complete Discharge Handout with client on aftercare options and continuity of care.
--- NOTE | 2022-08-16 12:00 | BH.COMM ---
Communication Note - Communication with Client Communication Note: Therapist attempted to have a session with pt, but pt disclosed that he did not want to stay in IOP and wanted to discharge. Pt shared I don't want to change and reported that he does not get benefit from the techniques or group topics. Pt encouraged to continue with outpatient counseling and psychiatry. Pt also reminded he can return if needed in the future.
== END 2022-08-16 11:37 | disposition home or self-care (01) ==
LOC: BHIOP 08:23
PROVIDERS: Referring Provider Psychiatry & Neurology Psychiatry; Visit Provider Psychiatry & Neurology Psychiatry
DX: F31.5 Bipolar disorder, current episode depressed, severe, with psychotic features (principal); F41.9 Anxiety disorder, unspecified
CPT/HCPCS: S9480; 90832; 90834; 90853